=== PATIENT | male | born 1945 | race Caucasian/White ===

== ENCOUNTER 2017-06-03 09:39 | Inpatient (IN) | payer OTHER ==
[2017-05-03 11:09] VITALS: BMI 35.0
--- NOTE | 2017-05-03 11:41 | PAT Medication Instructions ---
Service Date May 03, 2017. Current Home Medication List Acetaminophen (Tylenol), 1,000 MG PO PRN Aspirin (Aspirin Ec), 81 MG PO QAM Clobetasol Propionate (Clobetasol Propionate), 1 APPLN TOP PRN Lovastatin (Mevacor), 20 MG PO QAM [Axid], 1 TAB PO QAM [Verapamil Sl], 180 MG PO QAM Medication Instructions For Your Scheduled Surgery - Hold the following medications 24 hours prior to surgery: Clobetasol Propionate (Clobetasol Propionate), 1 APPLN TOP PRN - Take the following medications the morning of surgery with a sip of water: Acetaminophen (Tylenol), 1,000 MG PO PRN (OKAY TO TAKE UP TO 4 HOURS PRIOR TO SURGERY IF NEEDED) Aspirin (Aspirin Ec), 81 MG PO QAM Lovastatin (Mevacor), 20 MG PO QAM [Axid], 1 TAB PO QAM [Verapamil Sl], 180 MG PO QAM - Take the following medications as scheduled the night before surgery: Acetaminophen (Tylenol), 1,000 MG PO PRN (IF NEEDED) If you have any questions please call us at [phone] or [phone] or [phone]
--- NOTE | 2017-05-03 12:25 | DIAGNOSTIC IMAGING REPORT ---
CHEST 2 VIEWS ROUTINE CLINICAL HISTORY: PAT preoperative evaluation COMPARISON STUDY: No previous studies for comparison. FINDINGS: The bones soft tissues and hemidiaphragms are normal. The cardiomediastinal silhouette is normal. The lungs are clear. The pulmonary vasculature is normal. IMPRESSION: Negative chest. The above report was generated using voice recognition software. It may contain grammatical, syntax or spelling errors. Electronically signed by: Almas Parada M.D. 05/03/2017 12:23 PM Dictated Date/Time: 05/03/2017 12:23 PM
[2017-05-03 13:48] LABS: ALBUMIN 3.7 gm/dl (3.4-5.0); CALCIUM 8.4 mg/dl (8.5-10.1); CREATININE 0.73 mg/dl (0.60-1.40); POTASSIUM 4.1 mmol/L (3.5-5.1)
[2017-05-03 13:49] LABS: PTT PATIENT 25.8 SECONDS (21.0-31.0)
[2017-05-03 14:13] LABS: HEMOGLOBIN A1C 5.6 % (4.5-5.6)
[2017-05-03 15:45] LABS: BASO % 0.4 %; BASO ABS # 0.03 K/uL (0-0.2); EOS % 4.1 %; EOS ABS # 0.29 K/uL (0-0.5); HEMATOCRIT 43.3 % (42-52); HEMOGLOBIN 15.1 g/dL (14.0-18.0); IG# 0.02 K/uL (0.00-0.02); LYMPH % 22.6 %; LYMPH ABS # 1.58 K/uL (1.2-3.4); MEAN CELL VOLUME 89.6 fL (80-100); MEAN CORPUSCULAR HEMOGLOBIN 31.3 pg (25-34); MEAN CORPUSCULAR HGB CONC 34.9 g/dl (32-36); MEAN PLATELET VOLUME 10.4 fL (7.4-10.4); MONO % 10.9 %; MONO ABS # 0.76 K/uL (0.11-0.59); NEUT % 61.7 %; NEUT ABS # 4.32 K/uL (1.4-6.5); PLATELET COUNT 239 K/uL (130-400); RED CELL DISTRIBUTION WIDTH CV 12.3 % (11.5-14.5); RED CELL DISTRIBUTION WIDTH SD 39.4 fL (36.4-46.3)
--- NOTE | 2017-06-01 11:16 | HISTORY & PHYSICAL EXAMINATION ---
DATE OF ADMISSION: 06/03/2017 CHIEF COMPLAINT: Right knee pain and left shoulder pain. HISTORY OF PRESENT ILLNESS: The patient is a 72-year-old gentleman, approximately 5 years status post right total knee arthroplasty. In the past few months, he has been having some increasing pain. X-rays were questionable for possible lucency around the tibial component. The patient has also had subsequent knee arthroscopy with debridement of hypertrophic scarring. He continues to have ongoing pain. He had a bone scan which is suggestive of likely loosening of the tibial component, possible femoral component. He has had negative blood work for infection. He is now scheduled for right total knee revision arthroplasty. He has also had a history of left shoulder pain, treated with intermittent injections. We will give him a left shoulder injection at the time of his knee surgery. PAST MEDICAL HISTORY: Iron deficiency anemia, hyperlipidemia, hypertension, GERD, prostate cancer, coronary artery disease, sleep apnea, CPAP use. PAST SURGICAL HISTORY: Right knee as above, right knee arthroscopy, left knee replacement, prostate surgery, foot surgery. MEDICATIONS: Aspirin 81 mg daily, Zantac 150 mg 2 times daily, verapamil SR 180 mg daily, lovastatin 20 mg daily, Aristocort applied topically to affected area twice daily as needed. ALLERGIES: No known drug allergies. SOCIAL HISTORY AND REVIEW OF SYSTEMS: Noncontributory. PHYSICAL EXAMINATION: GENERAL: Well-nourished, well-developed male who appears his stated age. HEENT: Normocephalic, atraumatic. Extraocular movements intact. Oropharynx pink and moist. NECK: Supple without adenopathy. LUNGS: Clear to auscultation bilaterally. HEART: Regular rate and rhythm. ABDOMEN: Soft, nontender, nondistended. EXTREMITIES: Upper extremities are within normal limits. The right knee has a well-healed midline incision from his previous arthroplasty. His range of motion is from 0-120 degrees. X-RAYS: X-rays were reviewed. He has a Anni type knee in place. There appears to be obvious lucency from medial to lateral beneath the tibial component. This is also visible on the lateral x-ray. The femoral component does not show any obvious lucency. The bone scan was reviewed and also shows increased uptake, particularly around the tibial component but also mildly about the femoral component. His CRP and sed rate were within normal limits. ASSESSMENT: Aseptic loosening, right knee. PLAN: Risks versus benefits were discussed, consent was obtained. We will proceed with right knee excisional arthroplasty and revision total knee arthroplasty as indicated. Also give the patient left shoulder subacromial injection at the time of his knee surgery.
[2017-06-03] VITALS (7 sets, daily range): BP systolic 96–149; BP diastolic 59–92; PULSE 49–75; TEMP 36.4–36.7; O2SAT 92–97; Ht 172.7 cm; Wt 104.6 kg
[~2017-06-03] VITALS: Ht 172.7 cm; Wt 104.6 kg
[2017-06-03] MEDS: TRANEXAMIC ACID INJ 1,000 MG in SYRINGE 0 ML IV SCH ×2 (06:30→11:39)
--- NOTE | 2017-06-03 07:16 | History & Physical Bridge Note ---
H&P Re-Evaluation Bridge Note: I have examined the patient, reviewed the History & Physical and in the interval since the performance of the History & Physical I have noted the following changes of clinical significance: No changes noted
[~2017-06-03 09:39] MED LIST: ACET-1256 PO; ACETAMINOPHEN 500 MG TAB PO SCH; ASPI81TA28 PO; ATROPINE SULFATE 0.1 MG/ML 5ML SYR IV PRN; AXID PO; BUPIVACAINE 0.25% 30 ML VIAL ONE; BUPIVACAINE 0.5 % 5 MG/1 ML PF 10ML VIAL ONE; CEFAZOLIN 2000MG IV PUSH 15 ML IV SCH; CLBPO15 TOP; CeleBREX 200 MG CAP PO SCH; DEXAMETHASONE 4 MG TAB PO SCH; EpHEDrine SULFATE INJ 50 MG/ML AMP IV PRN; FAMOTIDINE 20 MG TAB PO SCH; FENTANYL CITRATE INJ 50 MCG/1 ML 2 ML VIAL IV PRN; GABAPENTIN 300 MG CAP PO SCH; LACTATED RINGER'S 1000ML 1,000 ML IV SCH; LACTATED RINGER'S 1000ML 500 ML IV SCH; LACTATED RINGER'S 1000ML IV SCH; LOVA20TA4 PO; METOCLOPRAMIDE HCL 10 MG TAB PO SCH; ONDANSETRON INJ 2 MG/ML 2 ML VIAL IV PRN; OXYCODONE HCL 10 MG TABCR (OXYCONTIN) PO SCH; ROPIVACAINE 5MG/ML 30 ML 150 MG, BUPIVACAINE 0.5% MPF INJ 30 ML, EpINEphrine HCL INJ 0.... INFIL SCH; VERAPAMIL PO
[2017-06-03] MEDS ORDERED: EpHEDrine SULFATE 50MG/5ML SYR ONE (09:48)
[2017-06-03] MEDS ORDERED: FENTANYL CITRATE INJ 50 MCG/1 ML 2 ML VIAL ONE (09:48)
[2017-06-03] MEDS ORDERED: PROPOFOL IV EMULSION 10 MG/ML 20 ML VIAL IV ONE ×4 (09:48→14:07)
[2017-06-03] MEDS ORDERED: MIDAZOLAM HCL 1 MG/ML 2ML VIAL ONE (09:48)
[2017-06-03] MEDS ORDERED: PHENYLEPHRINE 100MCG/ML 5ML SYR ONE (09:48)
[2017-06-03] MEDS ORDERED: LIDOCAINE HCL 2% 2 ML VIAL (20MG/ML) ONE (09:48)
[2017-06-03] MEDS ORDERED: ORTHO JOINT ANESTHETIC ONE (11:16)
[2017-06-03] MEDS ORDERED: BACITRACIN 50000 UNIT VIAL ONE (11:16)
[2017-06-03] MEDS ORDERED: POVIDONE-IODINE OP SOLN 30 ML BTL ONE (11:16)
[2017-06-03] MEDS ORDERED: BUPIVACAINE 0.5 % 5 MG/1 ML MPF 30ML VIAL ONE (11:20)
[2017-06-03] MEDS ORDERED: METHYLPREDNISOLONE ACETATE 80 MG/ML VIAL ONE (11:20)
--- NOTE | 2017-06-03 14:30 | [facility] Post Operative Brief Note ---
Immediate Operative Summary Operative Date Jun 03, 2017. Pre-Operative Diagnosis Aseptic Loosening, right knee Post-Operative Diagnosis same as pre-operative Procedure(s) Performed Right Total Knee Revision; Left Shoulder Subacromial Injection Surgeon Dr. Ruslan Seay Unit Control Worker Surgeon(s) Delta Agrawal PA-C Estimated Blood Loss 30mL Findings Consistent with Post-Op Diagnosis no iacute inflammation x3 Specimens Microbiology: 1. Right Knee Joint fluid for gram stain, culture and sensitivity, anaerobic and aerobic bacteria. Frozen Section: 1. Soft tissue, right bone interface femur 2. tibial cement interface, right. 3. tibial post interface, right. Fresh Specimen: A. Right Knee explanted hardware with no evidence of failure per Surgeon. Not to be sent to laboratory. May be returned to patient per Surgeon. Anesthesia Type MAC Spinal Regional Disposition Accompanied Pt To Recover: no Disposition: Recovery Room / PACU
[2017-06-03] MEDS ORDERED: ONDANSETRON INJ 2 MG/ML 2 ML VIAL IV PRN (15:15)
[2017-06-03] MEDS ORDERED: ALUMINUM/MAGNESIUM/SIMETH (MAALOX MAX) 30 ML UDC PO PRN (15:15)
[2017-06-03] MEDS ORDERED: MoRPHine SULFATE 2 MG/ML CARP IV PRN (15:15)
[2017-06-03] MEDS ORDERED: MAGNESIUM HYDROXIDE SUSP 30 ML UDC PO PRN (15:15)
[2017-06-03] MEDS ORDERED: OXYCODONE HCL IR 5 MG TAB (IMMEDIATE RELEASE) PO PRN (15:15)
[2017-06-03] MEDS ORDERED: METOCLOPRAMIDE HCL INJ 5 MG/ML 2 ML VIAL IV PRN (15:15)
[2017-06-03] MEDS ORDERED: ZOLPIDEM TARTRATE 5 MG TAB PO PRN (15:15)
[2017-06-03] MEDS ORDERED: TAMSULOSIN HCL 0.4 MG CAP PO PRN (15:15)
--- NOTE | 2017-06-03 15:34 | DIAGNOSTIC IMAGING REPORT ---
R KNEE 1 OR 2 VIEWS ROUTINE HISTORY: 72 years-old Male AP/LATERAL IN PACU RIGHT KNEE right knee osteoarthritis. Status post right knee total joint arthroplasty COMPARISON: Right knee radiographs 12/31/2011 TECHNIQUE: 2 views of the right knee FINDINGS: Status post revision of right knee total joint arthroplasty with elongated femoral and tibial stems. Prior patellar resurfacing. Surgical drain is in place along with expected postsurgical soft tissue swelling and deep tissue air. Alignment is satisfactory. No retained foreign bodies identified. IMPRESSION: Right knee total joint arthroplasty in satisfactory alignment. The above report was generated using voice recognition software. It may contain grammatical, syntax or spelling errors. Electronically signed by: Arden Hawkins M.D. 06/03/2017 3:32 PM Dictated Date/Time: 06/03/2017 3:31 PM
--- NOTE | 2017-06-03 15:53 | Anesthesiology Progress Note ---
Anesthesia Post Op Note Date & Time Jun 03, 2017 at 15:53 Vital Signs Pain Intensity: 0 Vital Signs Past 12 Hours Date Time Temp Pulse Resp B/P (MAP) Pulse Ox O2 Delivery O2 Flow Rate FiO2 06/03/17 15:46 128/77 06/03/17 15:42 59 14 06/03/17 15:42 59 14 95 06/03/17 15:41 36.7 06/03/17 15:40 121/69 06/03/17 15:37 58 16 96 06/03/17 15:37 58 16 06/03/17 15:36 57 16 06/03/17 15:36 62 16 97 06/03/17 15:35 111/64 06/03/17 15:31 63 15 06/03/17 15:31 63 15 94 06/03/17 15:30 110/75 06/03/17 15:26 61 14 96 06/03/17 15:26 61 14 06/03/17 15:25 62 16 06/03/17 15:25 64 16 125/68 98 06/03/17 15:20 67 24 126/67 97 06/03/17 15:20 64 24 06/03/17 15:16 119/73 06/03/17 15:15 65 17 06/03/17 15:15 66 17 95 06/03/17 15:11 123/66 06/03/17 15:10 36.4 71 16 124/67 96 Mask 10 06/03/17 15:10 63 18 06/03/17 15:10 64 18 97 06/03/17 10:10 36.7 75 18 149/92 96 Room Air Notes Mental Status: alert / awake / arousable, participated in evaluation Pt Amnestic to Procedure: Yes Nausea / Vomiting: adequately controlled Pain: adequately controlled Airway Patency, RR, SpO2: stable & adequate BP & HR: stable & adequate Hydration State: stable & adequate Neuraxial Anesthesia: was administered, sensory block is resolving Anesthetic Complications: no major complications apparent
--- NOTE | 2017-06-03 16:02 | OPERATIVE REPORT ---
DATE OF OPERATION: 06/03/2017 POSTOPERATIVE DIAGNOSIS: Aseptic loosening, right total knee. PROCEDURE: Right total knee revision. SURGEON: Dr. Seay. VELVET STEAMER: Delta Agrawal PA-C. Mr. Agrawal was essential through all components of the case including positioning, prepping, draping, surgical garment fitter, wound closure and left shoulder injection. ANESTHESIA: Spinal. COMPLICATIONS: None. OPERATION AND FINDINGS: Following induction of adequate spinal anesthesia with IV sedation, the patient's left shoulder was prepped with alcohol and a subacromial injection was placed using 2 mL of Marcaine. Following this, the right knee was prepped and draped in usual sterile manner. The limb was exsanguinated with an Esmarch bandage, tourniquet inflated to 325 mmHg. The previously made incision was reopened and extended both proximally and distally. Median parapatellar incision was carried out and a complete synovectomy was carried out open. The scar from the backside of the patella was removed, the patella appeared to be intact and decision was made to retain the patella. A lateral snip was required for adequate exposure and the tibial poly was removed. Gross motion of the tibial component could be appreciated. Next, attention was turned to the femur which did not appear to be loose and this was undermined using a flexible osteotome and a mallet and the femoral component was disimpacted with actually no femoral loss. A small area of soft tissue at the bone cement interface behind the femoral flange was placed in a cup and sent to the lab for cell count. Next, attention was turned to the tibia which was easily disimpacted using a punch and a mallet. Plier was used to remove it. Soft tissue from the bone cement interface in the canal was prepared and separately soft tissue from the bone cement interface of the tibial plateau was prepared, so 3 specimens total were sent to lab for cell count. Toward the end of the case, these all came back negative for signs of acute inflammation with less than 5 white cells per high power field. Next, excess cement removal commenced. The canal was opened using a drill through the cement plug and various chisels utilized to break up the cement plug and all cement in the canal was removed. Sterile reamers were used to open the canal up to a 14 mm diameter and a proximal tibial cutting guide was placed and the proximal tibia cut was made. This cleaned up the proximal tibia nicely. All bone fragments were removed. Scarring posteriorly was debrided using electrocautery and a pickup. An offset tibia was noted to be needed. A size 4 tibial component was chosen the size to be used. The proximal tibia was prepared using the appropriate boss drilled as well as the tibial punch and a mallet. Next, attention was turned once again the femur. First, a 5 femoral trial was placed, which was found will be overstuffed and therefore, a trial was placed. Estimating augments was done and 5 mm augments were suspected posteriorly. A 15 mm augment medially and a 10 mm augment laterally distally. A trial reduction was carried out using the tibial poly and a size 16 tibia component was chosen the size to be used. Various changes in the joint line were trialed until this final combination was chosen. The augment cuts were made in the distal femur using the appropriate block and the notch was prepared as well. The femoral trial was assembled on the back table and reduction was carried out once again confirming augment sizes and poly thickness. A posterior stabilized poly was chosen as the post-total stability due to the patient's intact collateral ligaments. The trials were removed, the knee was thoroughly irrigated with pulsatile irrigation and the final components were assembled on the back table. Three plaques of cement with gentamicin were mixed and first the femoral component was cemented in position. All excess cement was removed. A blunt and sharp Hohmann was used to expose the proximal tibia and the tibial component was impacted into position and a trial reduction was carried out with the final 16 poly. All excess cement had been removed, the knee was held in extension while cement hardened and a Hemovac drain was placed. Final Betadine soak was utilized as well as a final irrigation and the lateral snip as well as extensor mechanism was closed using #1 FiberWire suture. Subcutaneous tissues were closed using 2-0 Dexon, and skin was closed with a ZipLine. Sterile dressing of Adaptic, 4 x 4's, sterile Webril and a double length Raoul was applied. The patient tolerated the procedure well. I attest to the content of the Intraoperative Record and any orders documented therein. Any exception s are noted below.
[2017-06-03] MEDS ORDERED: D5W AND 1/2NSS + 20MEQ KCL 1,000 ML IV SCH (16:30)
--- NOTE | 2017-06-03 17:37 | Medical Consult ---
History General Date of Service: Jun 03, 2017. Stated Complaint: Right Knee Osteoarthritis HPI The patient is a 72 year old male who presents to [facility] with complaints of Right Knee Osteoarthritis. The patient's primary care provider is Jaime Stevens MD. Pt's past medical hx includes-non occlusive CAD , HTN, GERD, hx of prostate CA , sleep apnea , dyslipidemia Pt had rt knee surgery done in 12/2011 , developed worsening of pain in past few years , evaluated by orthopedics , underwent revision surgery of rt knee today recovering well post op denies of any SOB ,chest pain or cough , no fever or chills mentions post op knee pain well controlled with current pain med regimen Historian: patient Onset: other (past few years ) Severity: moderate Complaint Status: improved Quality of Pain: aching Modifying Factors: pain medication Review of Systems Constitutional: denies: no symptoms, as stated in HPI, chills, diaphoresis, fever, malaise, weakness, weight gain, weight loss, other Eyes: denies: no symptoms, as stated in HPI, eye pain, tearing, itching, redness, discharge, double vision, visual changes, blurred vision, photophobia, other ENT: denies: no symptoms, as stated in HPI, ear pain, ear discharge, loss of hearing, tinnitus, nasal pain, nasal congestion, rhinorrhea, epistaxis, sore throat, stridor, throat swelling, mouth pain, mouth swelling, dental pain, gum swelling, other Cardiovascular: denies: no symptoms, as stated in HPI, chest pain, chest pressure, chest tightness, diaphoresis, edema, intermittent claudication, orthopnea, palpitations, syncope, other Respiratory: denies: no symptoms, as stated in HPI, cough, orthopnea, shortness of breath, stridor, wheezing, sputum production, cyanosis, QUESADA, PND, hemoptysis, other Gastrointestinal: denies: no symptoms, as stated in HPI, abdominal pain, constipation, diarrhea, nausea, vomiting, hematemesis, hematochezia, hemorrhoids , anorexia, appetite changes, stool changes, flatulence, belching, food intolerance, jaundice, other Musculoskeletal: reports: other (s/p rt knee revision surgery ) Neurologic: denies: no symptoms, as stated in HPI, headache, dizziness, general weakness, focal weakness, numbness, tingling, paresthesia, pre-existing deficit, tremors, tics, vertigo, seizure, lethargy, memory loss, other Psychiatric: denies: no symptoms, as stated in HPI, anxiety, depression, suicidal ideation, homicidal ideation, visual hallucinations, auditory hallucinations, mood changes, alcohol abuse, drug abuse, other Social History Hx Tobacco Use In Past Year?: No Smoking Status: Never Smoker Immunizations History of Influenza Vaccine: Yes Influenza Vaccine Date: Jan 29, 2011 History of Tetanus Vaccine?: No History of Pneumococcal: No History of Hepatitis B Vaccine: No Allergies Coded Allergies: Hydromorphone (Verified Allergy, Severe, DELIRIUM, 06/03/17) Current Medications Reported Home Medications Medications Dose Route/Sig Max Daily Dose Days Date Category Tylenol (Acetaminophen) 500 Mg Tab 1,000 Mg PO PRN 05/03/17 Reported Clobetasol Propionate 45 Appln/15 Gm Oint 1 Appln TOP PRN 30 05/03/17 Reported [Axid] 1 Tab PO QAM 05/03/17 Reported [Verapamil Sl] 180 Mg PO QAM 05/03/17 Reported Aspirin Ec (Aspirin) 81 Mg Tab 81 Mg PO QAM 05/03/17 Reported Mevacor (Lovastatin) 20 Mg Tab 20 Mg PO QAM 04/13/11 Reported Physical Physical Exam Vital Signs: Date Time Temp Pulse Resp B/P (MAP) Pulse Ox O2 Delivery O2 Flow Rate FiO2 06/03/17 17:00 36.4 57 16 132/78 (96) 95 Nasal Cannula 2.0 06/03/17 16:30 36.6 49 16 96/59 (71) 95 Nasal Cannula 2.0 06/03/17 16:00 36.4 61 16 113/68 (83) 92 Nasal Cannula 2.0 06/03/17 16:00 92 Nasal Cannula 2.0 06/03/17 16:00 92 Nasal Cannula 2.0 06/03/17 15:52 53 21 93 06/03/17 15:52 53 21 06/03/17 15:51 113/68 06/03/17 15:47 61 16 06/03/17 15:47 61 16 92 06/03/17 15:46 128/77 06/03/17 15:42 59 14 06/03/17 15:42 59 14 95 06/03/17 15:41 36.7 06/03/17 15:40 121/69 06/03/17 15:37 58 16 96 06/03/17 15:37 58 16 06/03/17 15:36 57 16 06/03/17 15:36 62 16 97 06/03/17 15:35 111/64 06/03/17 15:31 63 15 06/03/17 15:31 63 15 94 06/03/17 15:30 110/75 06/03/17 15:26 61 14 96 06/03/17 15:26 61 14 06/03/17 15:25 62 16 06/03/17 15:25 64 16 125/68 98 06/03/17 15:20 67 24 126/67 97 06/03/17 15:20 64 24 06/03/17 15:16 119/73 06/03/17 15:15 65 17 06/03/17 15:15 66 17 95 06/03/17 15:11 123/66 06/03/17 15:10 36.4 71 16 124/67 96 Mask 10 06/03/17 15:10 63 18 06/03/17 15:10 64 18 97 06/03/17 10:10 36.7 75 18 149/92 96 Room Air General Appearance: NO APPARENT DISTRESS Head: NORMOCEPHALIC, ATRAUMATIC Eyes: PERRLA Neck: NORMAL RANGE OF MOTION, NO THYROMEGALY Cardiovasular: REGULAR RATE/RHYTHM, NORMAL S1S2, NO JVD, NORMAL PERIPHERAL PULSES Abdomen: NON TENDER, NORMAL BOWEL SOUNDS Upper Extremities: NO EDEMA, NO DEFORMITY, NORMAL ROM Lower Extremities: other (s/p rt knee surgery ) Neuro: ALERT, ORIENTED x 3, NORMAL MOTOR EXAM Psychiatric: NORMAL AFFECT Diagnostics Labs Microbiology Results 06/03/17 Gram Stain - Final, Resulted 06/03/17 Bacterial Culture, Resulted Pending Diagnostic Radiology R KNEE 1 OR 2 VIEWS ROUTINE HISTORY: 72 years-old Male AP/LATERAL IN PACU RIGHT KNEE right knee osteoarthritis. Status post right knee total joint arthroplasty COMPARISON: Right knee radiographs 12/31/2011 TECHNIQUE: 2 views of the right knee FINDINGS: Status post revision of right knee total joint arthroplasty with elongated femoral and tibial stems. Prior patellar resurfacing. Surgical drain is in place along with expected postsurgical soft tissue swelling and deep tissue air. Alignment is satisfactory. No retained foreign bodies identified. IMPRESSION: Right knee total joint arthroplasty in satisfactory alignment. Radiology Interpretation: CXR NORMAL Impression Assessment and Plan S/P RT KNEE REVISION SURGERY : recovering well post op cont pain control ( pt report adverse reaction /delirium with Dilaudid -was given in prior surgery /added to Allergy /adv reaction list ) does not have any untoward effect with current regimen of Celebrex /Toradol ; ordered for PRN Roxicodone and Morphine -has not received any dose yet pt prefers not to have any narcotics -will hold Roxicodone for now , IV morphine can be D/emiliano on Post op #1 if pain remains good control cont further management as per Ortho HTN : BP stable cont Verapamil HYPERLIPIDEMIA: on Lovastatin HX OF NON OCCLUSIVE CAD Stress ECHO on 02/21/2013 : negative for stress induced ischemia , evidence of aortic sclerosis without aortic stenosis , mild aortic valve regurgitation present no angina symptom cont Aspirin , Verapamil , statin FULL CODE DVT PROPHYLAXIS : on Aspirin 81 mg BID per Ortho DISPOSITION : per Primary Ortho team thank you for allowing us to participate in care of the patient , will continue to follow the pt during his hospital course Dr Mariano will follow this patient form tomorrow 06/04/17 Admit To Med/Surg Code Status Level 1 - Full Code DVT Prophylaxis other (Aspirin )
[2017-06-03] MEDS: FERROUS GLUCONATE 324 MG TAB PO SCH (17:54)
[2017-06-03] MEDS: KETOROLAC TROMETHAMINE 15 MG/ML VIAL IV. SCH ×2 (18:14→23:18)
[2017-06-03] MEDS: ACETAMINOPHEN 500 MG TAB PO SCH (18:14)
[2017-06-03] MEDS: CEFAZOLIN IV 2,000 MG in SYRINGE 0 ML IV SCH (19:54)
[2017-06-03] MEDS: ASPIRIN 81 MG ECTAB PO SCH (20:23)
[2017-06-03] MEDS: DOCUSATE SODIUM 100 MG CAP PO SCH (20:23)
[2017-06-04] MEDS: ACETAMINOPHEN 500 MG TAB PO SCH ×3 (02:04→17:39)
[2017-06-04 03:38] VITALS: BP 127/78; PULSE 66; TEMP 36.6; O2SAT 96
[2017-06-04] MEDS: CEFAZOLIN IV 2,000 MG in SYRINGE 0 ML IV SCH (03:58)
[2017-06-04] MEDS: KETOROLAC TROMETHAMINE 15 MG/ML VIAL IV. SCH ×2 (05:43→11:38)
[2017-06-04 06:52] LABS: HEMATOCRIT 39.5 % (42-52); HEMOGLOBIN 13.9 g/dL (14.0-18.0); MEAN CELL VOLUME 88.2 fL (80-100); MEAN CORPUSCULAR HGB CONC 35.2 g/dl (32-36); MEAN PLATELET VOLUME 10.1 fL (7.4-10.4); PLATELET COUNT 224 K/uL (130-400); RED CELL DISTRIBUTION WIDTH CV 12.6 % (11.5-14.5); RED CELL DISTRIBUTION WIDTH SD 40.6 fL (36.4-46.3); WHITE BLOOD COUNT 16.05 K/uL (4.8-10.8)
[2017-06-04 06:59] LABS: CALCIUM 8.6 mg/dl (8.5-10.1); CREATININE 1.13 mg/dl (0.60-1.40); POTASSIUM 4.3 mmol/L (3.5-5.1)
[2017-06-04 07:13] VITALS: BP 130/80; PULSE 61; TEMP 36.6; O2SAT 94
[2017-06-04] MEDS ORDERED: DEXAMETHASONE INJ 10 MG in SYRINGE 0 ML IV SCH (07:30)
--- NOTE | 2017-06-04 08:10 | Orthopedic Progress Note ---
Orthopedic Progress Note Date of Service Jun 04, 2017. Subjective Post OP Day: 1 Reports: feeling well, pain controlled w PO medications, Denies: complaints, chest pain, SOB, nausea / vomiting, light headedness, calf pain Objective calves soft nontender, N/V intact, capillary refill less than 2 sec., dressing C /D/I, A&O x3, toes mobile, hemovac drainage (150cc/150cc) Date Time Temp Pulse Resp B/P (MAP) Pulse Ox O2 Delivery O2 Flow Rate FiO2 06/04/17 07:13 36.6 61 16 130/80 (97) 94 Room Air 06/04/17 03:38 36.6 66 17 127/78 (94) 96 CPAP 06/03/17 23:27 36.6 74 16 144/81 (102) 97 Room Air 06/03/17 23:15 Room Air CPAP 06/03/17 19:00 36.6 73 20 136/86 (103) 92 Room Air 06/03/17 18:00 36.7 72 16 147/82 (103) 95 Room Air 06/03/17 17:00 36.4 57 16 132/78 (96) 95 Nasal Cannula 2.0 06/03/17 16:30 36.6 49 16 96/59 (71) 95 Nasal Cannula 2.0 06/03/17 16:00 36.4 61 16 113/68 (83) 92 Nasal Cannula 2.0 06/03/17 16:00 92 Nasal Cannula 2.0 06/03/17 16:00 92 Nasal Cannula 2.0 06/03/17 15:52 53 21 93 06/03/17 15:52 53 21 06/03/17 15:51 113/68 06/03/17 15:47 61 16 06/03/17 15:47 61 16 92 06/03/17 15:46 128/77 06/03/17 15:42 59 14 06/03/17 15:42 59 14 95 06/03/17 15:41 36.7 06/03/17 15:40 121/69 06/03/17 15:37 58 16 96 06/03/17 15:37 58 16 06/03/17 15:36 57 16 06/03/17 15:36 62 16 97 06/03/17 15:35 111/64 06/03/17 15:31 63 15 06/03/17 15:31 63 15 94 06/03/17 15:30 110/75 06/03/17 15:26 61 14 96 06/03/17 15:26 61 14 06/03/17 15:25 62 16 06/03/17 15:25 64 16 125/68 98 06/03/17 15:20 67 24 126/67 97 06/03/17 15:20 64 24 06/03/17 15:16 119/73 06/03/17 15:15 65 17 06/03/17 15:15 66 17 95 06/03/17 15:11 123/66 06/03/17 15:10 36.4 71 16 124/67 96 Mask 10 06/03/17 15:10 63 18 06/03/17 15:10 64 18 97 06/03/17 10:10 36.7 75 18 149/92 96 Room Air Laboratory Results 24 Hours: Test 06/04/17 06:02 Hematocrit 39.5 % Hemoglobin 13.9 g/dL Assessment & Plan Assessment: POD#1 S/P Right TKA Plan: Medical Management DVT - ASA PT/OT Discharge - home with home health Inhouse Planning Pain Management: Celebrex, Morphine, Oxy IR DVT Prophylaxis: TEDs, SCDs, ASA Discharge Planning Discharge Planning: home with home health
[2017-06-04] MEDS: FERROUS GLUCONATE 324 MG TAB PO SCH ×3 (08:29→17:29)
[2017-06-04] MEDS: ASPIRIN 81 MG ECTAB PO SCH ×2 (08:29→21:35)
[2017-06-04] MEDS: DOCUSATE SODIUM 100 MG CAP PO SCH ×2 (08:29→21:34)
[2017-06-04] MEDS ORDERED: PNEUMOCOCCAL POLYSACCHARIDES 25 MCG/0.5 ML VIAL/SYR IM. ONE (08:30)
[2017-06-04] MEDS: PANTOprazole SOD 40 MG TAB PO SCH (08:30)
[2017-06-04] MEDS: VERAPAMIL HCL 180 MG TABCR PO SCH (08:30)
[2017-06-04] MEDS: LOVASTATIN 20 MG TAB PO SCH (08:30)
[2017-06-04] MEDS: MULTIVITAMIN TAB PO SCH (08:30)
[2017-06-04] MEDS ORDERED: PNEUMOCOCCAL ADMINISTRATION CHARGE ONE (08:30)
--- NOTE | 2017-06-04 10:56 | Anesthesiology Progress Note ---
Anesthesia Post Op Note Date & Time Jun 04, 2017 at 10:55 Vital Signs Pain Intensity: 3.0 Vital Signs Past 12 Hours Date Time Temp Pulse Resp B/P (MAP) Pulse Ox O2 Delivery O2 Flow Rate FiO2 06/04/17 07:45 Room Air 06/04/17 07:13 36.6 61 16 130/80 (97) 94 Room Air 06/04/17 03:38 36.6 66 17 127/78 (94) 96 CPAP 06/03/17 23:27 36.6 74 16 144/81 (102) 97 Room Air 06/03/17 23:15 Room Air CPAP Notes Mental Status: alert / awake / arousable, participated in evaluation Pt Amnestic to Procedure: Yes Nausea / Vomiting: adequately controlled Pain: adequately controlled Airway Patency, RR, SpO2: stable & adequate BP & HR: stable & adequate Hydration State: stable & adequate Anesthetic Complications: no major complications apparent
[2017-06-04 12:09] VITALS: BP 144/77; PULSE 86; TEMP 36.8; O2SAT 94
--- NOTE | 2017-06-04 13:35 | Hospitalist Progress Note ---
Hospitalist Progress Note Date of Service Jun 04, 2017. (Sarah Rutledge CRNP) Subjective POD #1 Right Total Knee Revision Patient was seen and examined. He is sitting up in the chair. Reports his pain is well controlled with pain medicines. No chest pain or shortness of breath. No BM however is passing flatus. Denies abdominal pain, nausea, or vomiting. No lightheadedness or dizziness. (Sarah Rutledge CRNP) Objective Vital Signs Last Vital Signs Documentation Date Time Temp Pulse Resp B/P (MAP) Pulse Ox O2 Delivery O2 Flow Rate FiO2 2 12:09 36.8 86 16 144/77 (99) 94 Room Air 218 17:00 2.0 (Sarah Rutledge CRNP) Physical Exam General Appearance: WD/WN, no apparent distress Respiratory/Chest: lungs clear, normal breath sounds, no respiratory distress Cardiovascular: regular rate, rhythm, no edema, + systolic murmur Abdomen: normal bowel sounds, non tender, soft, + distended Extremities: + pertinent finding (s/p right knee surgery, dressing dry and intact, drain in place draining bloody drainage, CSM checks intact to RLE) Neurologic/Psychiatric: alert, oriented x 3 (Sarah Rutledge CRNP) Laboratory Results Item Value Date Time White Blood Count 16.05 K/uL H 2/18 0602 Hemoglobin 13.9 g/dL L 218 0602 Hematocrit 39.5 % L 218 0602 Platelet Count 224 K/uL 2 0602 Sodium Level 136 mmol/L 218 0602 Potassium Level 4.3 mmol/L 2 0602 Blood Urea Nitrogen 17 mg/dl 2 0602 Creatinine 1.13 mg/dl 2 0602 (Sarah Rutledge CRNP) Assessment and Plan S/P RIGHT TOTAL KNEE REVISION - POD#1 - activity and wound care orders as per ortho - pain control with bowel regimen - PT/OT - pre op hgb 15.1 -> 13.9; no role for transfusion at this time HTN - BP controlled, continue verapamil NON OBSTRUCTIVE CAD - stable, no reports of chest pain - continue ASA and statin JADYN - CPAP as per home settings DVT PROPHYLAXIS - ASA 81mg BID per ortho (Sarah Rutledge, PAYAL) S/p rt knee revision surgery POD #1 recovering well post op cont management as per Ortho medically stable Maria Isabel Jones MD (Maria Isabel Jones M.D.)
[2017-06-04] MEDS ORDERED: NURSING VERBAL MED ORDER ONE (14:45)
[2017-06-04 15:20] VITALS: BP 140/74; PULSE 72; TEMP 36.7; O2SAT 95
[2017-06-04] MEDS: TRAMADOL HCL 50 MG TAB PO PRN ×3 (15:37→20:32)
[2017-06-04] MEDS: CeleBREX 200 MG CAP PO SCH (21:35)
[2017-06-04 23:48] VITALS: BP 132/82; PULSE 57; TEMP 36.5; O2SAT 95
[2017-06-05] MEDS: ACETAMINOPHEN 500 MG TAB PO SCH ×2 (02:09→10:04)
[2017-06-05 06:04] LABS: HEMATOCRIT 34.5 % (42-52); HEMOGLOBIN 11.9 g/dL (14.0-18.0); MEAN CELL VOLUME 89.1 fL (80-100); MEAN CORPUSCULAR HEMOGLOBIN 30.7 pg (25-34); MEAN CORPUSCULAR HGB CONC 34.5 g/dl (32-36); MEAN PLATELET VOLUME 10.4 fL (7.4-10.4); PLATELET COUNT 192 K/uL (130-400); RED CELL DISTRIBUTION WIDTH CV 13.1 % (11.5-14.5); RED CELL DISTRIBUTION WIDTH SD 42.5 fL (36.4-46.3); WHITE BLOOD COUNT 13.63 K/uL (4.8-10.8)
[2017-06-05 06:35] VITALS: BP 130/83; PULSE 58; TEMP 36.6; O2SAT 94
[2017-06-05 06:41] LABS: CALCIUM 8.4 mg/dl (8.5-10.1); CREATININE 0.88 mg/dl (0.60-1.40); POTASSIUM 4.8 mmol/L (3.5-5.1)
[2017-06-05] MEDS: FERROUS GLUCONATE 324 MG TAB PO SCH ×2 (07:36→13:10)
[2017-06-05] MEDS: ASPIRIN 81 MG ECTAB PO SCH (07:36)
[2017-06-05] MEDS: TRAMADOL HCL 50 MG TAB PO PRN ×2 (07:36→13:46)
[2017-06-05] MEDS: DOCUSATE SODIUM 100 MG CAP PO SCH (07:37)
[2017-06-05] MEDS: LOVASTATIN 20 MG TAB PO SCH (08:32)
[2017-06-05] MEDS: PANTOprazole SOD 40 MG TAB PO SCH (08:32)
[2017-06-05] MEDS: MULTIVITAMIN TAB PO SCH (08:32)
[2017-06-05] MEDS: VERAPAMIL HCL 180 MG TABCR PO SCH (08:33)
--- NOTE | 2017-06-05 08:39 | Orthopedic Progress Note ---
Orthopedic Progress Note Date of Service Jun 05, 2017. Subjective Post OP Day: 2 Reports: feeling well, pain controlled w PO medications, Denies: complaints, chest pain, SOB, nausea / vomiting, light headedness, calf pain Objective calves soft nontender, N/V intact, capillary refill less than 2 sec., dressing C /D/I, A&O x3, toes mobile Silverlon in tact. Date Time Temp Pulse Resp B/P (MAP) Pulse Ox O2 Delivery O2 Flow Rate FiO2 06/05/17 07:15 Room Air 06/05/17 06:35 36.6 58 16 130/83 (99) 94 Room Air 06/04/17 23:48 36.5 57 16 132/82 (99) 95 CPAP 06/04/17 19:30 Room Air 06/04/17 15:20 36.7 72 18 140/74 (96) 95 Room Air 06/04/17 12:09 36.8 86 16 144/77 (99) 94 Room Air Laboratory Results 24 Hours: Test 06/05/17 05:30 Hematocrit 34.5 % Hemoglobin 11.9 g/dL Assessment & Plan Assessment: POD#2 S/P Right TKA REVISION Plan: Medical Management DVT - ASA PT/OT Discharge - home with home health TODAY CXS/ GRAM STAIN NEG. I have seen and examined the patient, and agree with SHANEKA Weathers's assessment and plan. I am covering Orthopedic Surgery call for Dr. Seay, who is unavailable. Nick Moeller MD Inhouse Planning Pain Management: Celebrex, Morphine, Oxy IR DVT Prophylaxis: TEDs, SCDs, ASA Discharge Planning Discharge Planning: home with home health
[2017-06-05] MEDS ORDERED: ASPEC81 PO (08:42)
[2017-06-05] MEDS ORDERED: ACET-24 PO (08:42)
[2017-06-05] MEDS ORDERED: ULT50X PO (08:42)
[2017-06-05] MEDS ORDERED: CLB200 PO (08:42)
--- NOTE | 2017-06-05 08:44 | Discharge Instructions ---
Discharge Instructions Date of Service Jun 05, 2017. Admission Reason for Admission: Right Knee Osteoarthritis Discharge Discharge Diagnosis / Problem: RIGHT TKA REVISION Discharge Goals Goal(s): Improve function Activity Recommendations Activity Limitations: as noted below . Instructions / Follow-Up Instructions / Follow-Up ACTIVITY RECOMMENDATIONS: SELF CARE INSTRUCTIONS AFTER TOTAL KNEE REPLACEMENT A. You may need to continue a physical therapy program after discharge from the hospital. There are several options available to you. Your doctor will assist you in selecting the best one for you. 1. An out-patient facility 2 to 3 times a week for therapy or home therapy. 2. Continue working on all exercises taught to you in the hospital. Your goals should be to increase bending of your knee to 90 degrees and beyond and to fully straighten your knee. B. You may progress at your own pace from walking with a walker or crutches to a cane; then to no assistive devices. C. Make walking a part of your daily routine. Be up as much as comfortable with rest periods throughout the day. Rest with leg elevation is very important. Use the ice wrap frequently for the first 3-4 weeks. D. There are no restrictions on activities. You may ride in a car, shop, participate in poultry cutter and all social activities. E. Wear the long elastic stockings (TIFFANI hose) 20 hours a day for 2 weeks after surgery. They can be removed several times a day for laundering and for a bath. F. You may shower, no tub baths until cleared by your doctor. SPECIAL CARE INSTRUCTIONS: VERY IMPORTANT TO READ AND REVIEW A. There are a few signs you need to watch for after you are home. Call [facility] if you notice any of the followin. Increased severe knee pain. Some pain is expected especially when you exercise. 2. Increased swelling in your leg or knee; pain or swelling of the calf muscle in either lower leg. 3. Any fluid drainage from the incision. 4. Shortness of breath or chest pain. B. Please call [facility] at if you have any concerns or questions about your operation or recovery. The doctor or his nurse will return your call promptly. C. You must take antibiotics before dental work, bladder, bowel or other surgery. Your doctor will provide you with a permanent care to carry describing this precaution. IMPORTANT: * REMEMBER TO TAKE ASPIRIN, 81 MG, TWICE DAILY FOR 4 WEEKS UNLESS OTHERWISE DIRECTED. THIS IS YOUR BLOOD THINNER. * HIGH RISK PATIENTS MAY BE PRESCRIBED A STRONGER BLOOD THINNER. THIS WILL BE PROVIDED AT DISCHARGE. * CALL IF INCREASED PAIN, REDNESS, DRAINAGE OR FEVER GREATER THAT 101. * WEAR TIFFANI HOSE 20 HOURS PER DAY FOR 2 WEEKS. * YOU MAY HAVE A LARGE BAND-AID LIKE DRESSING (SILVERON). THIS WILL REMAIN ON YOUR INCISION FOR 7 DAYS, THEN CAN BE REMOVED. IF INCISION IS LEAKING THROUGH DRESSING, CALL THE OFFICE . FOLLOW UP VISIT: If appointment is not already scheduled: Please call [facility] to make a follow-up appointment for 2 weeks after your surgery at . Current Hospital Diet Patient's current hospital diet: Regular Diet Discharge Diet Recommended Diet: Regular Diet Procedures Procedures Performed: Right Total Knee Revision; Left Shoulder Subacromial Injection Pending Studies Studies pending at discharge: no Laboratory Results Hemoglobin A1c Test 05/03/17 11:53 Range/Units Estimated Average Glucose 114 mg/dl Hemoglobin A1c 5.6 4.5-5.6 % Medical Emergencies . Who to Call and When: Medical Emergencies: If at any time you feel your situation is an emergency, please call [phone] immediately. . Non-Emergent Contact Non-Emergency issues call your: Primary Care Provider . "Provider Documentation" section prepared by Almas Weathers. . VTE Core Measure Inpt VTE Proph given/why not?: Other Anticoagulation (ASA), T.E.D. Stockings, SCD's
[2017-06-05] MEDS: CeleBREX 200 MG CAP PO SCH (08:55)
[2017-06-05 09:09] VITALS: BP 130/83; PULSE 58; TEMP 36.6; O2SAT 94
== END 2017-06-05 14:30 | disposition home health service (06) | DRG 468 ==
LOC: C.ACU 09:39 → C.3E 11:01 → ENRESERV 15:36
PROC: 0SWT0JZ Revision of Synthetic Substitute in Right Knee Joint, Femoral Surface, Open Approach (ICD-10-PCS; principal; 2017-06-03 12:00)
PROC: 0SWV0JZ Revision of Synthetic Substitute in Right Knee Joint, Tibial Surface, Open Approach (ICD-10-PCS; principal; 2017-06-03 12:00)
PROC: 3E0U3BZ Introduction of Anesthetic Agent into Joints, Percutaneous Approach (ICD-10-PCS; principal; 2017-06-03 12:00)
DX: T84.032A Mechanical loosening of internal right knee prosthetic joint, initial encounter (principal); M25.512 Pain in left shoulder; D50.9 Iron deficiency anemia, unspecified; E78.5 Hyperlipidemia, unspecified; I10 Essential (primary) hypertension; K21.9 Gastro-esophageal reflux disease without esophagitis; G47.30 Sleep apnea, unspecified; I25.10 Atherosclerotic heart disease of native coronary artery without angina pectoris; Z79.82 Long term (current) use of aspirin; Z79.899 Other long term (current) drug therapy; Y83.1 Surgical operation with implant of artificial internal device as the cause of abnormal reaction of the patient, or of later complication, without mention of misadventure at the time of the procedure; Y79.2 Prosthetic and other implants, materials and accessory orthopedic devices associated with adverse incidents; Z96.653 Presence of artificial knee joint, bilateral; Z88.5 Allergy status to narcotic agent

== ENCOUNTER 2019-09-22 11:08 | Inpatient (IN) ==
--- NOTE | 2019-09-19 09:26 | History & Physical Report ---
Date of Service September 19, 2019 Assessment & Plan (1) Osteoarthritis of ankle, left: Schedule Left STAR Total Ankle Replacement, percutaneous tendo-achilles lengthening, resection Os Trigonum, Application PRP, possible Arthrex internal brace. All potential risks, benefits, complications, alternatives, and rehab have been discussed with the patient and he wishes to proceed. He will be scheduled for 09.22.2019 with plan for ASA 81 mg BID x 4 wks for DVT prophylaxis. 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 He self treated the ankle pain for many years using bracing and anti- inflammatories. He's had other conservative treatments done more recently, but he has failed all treatments. He is now being set up for a total ankle arthroplasty. Allergies Allergy/AdvReac Type Severity Reaction Status Date / Time hydromorphone Allergy Intermediate DELIRIUM Verified 09/14/19 07:57 Home Medications Home Medications Medication Instructions Recorded Confirmed Type aspirin [Aspirin Low Dose] 81 mg PO QAM 05/25/19 09/14/19 History lovastatin 20 mg PO QAM 05/25/19 09/14/19 History meloxicam 7.5 mg PO QAM 05/25/19 09/14/19 History multivitamin 1 tab PO DAILY 05/25/19 09/14/19 History verapamil 180 mg PO QAM 05/25/19 09/14/19 History famotidine 20 mg PO QAM 09/14/19 09/14/19 History Past Med/Surg History Social History Preferred Language: Dutch Communication Ability: Effective Trichologist Required: No Beliefs That Will Affect Care: None Current Living Situation: Spouse Feels Safe at Home: Yes Smoking Status: Never smoker Second Hand Exposure: Yes (hx as a child) ; Hx Alcohol Use: No Hx Substance Use: No Physical Exam Constitutional: well developed and well nourished; no acute distress ENMT: external ear and nose normal, oropharynx normal Neck: trachea midline, no thyromegaly Respiratory: normal respiratory effort, lungs clear to auscultation Cardiovascular: Rate/Rhythm: regular rate and regular rhythm Gastrointestinal (Abdomen): normal bowel sounds, soft, nontender, no hepatosplenomegaly Musculoskeletal: Ankle: + effusion (left ankle), + ankle ROM with crepitation (left ankle) and + joint line tenderness (ankle) (anterior left ankle); no skin erythema and no ecchymosis Skin: no rashes, warm and dry Neurologic: normal touch/pain/proprioception Psychiatric: A+Ox3, euthymic affect Speech: normal rate/rhythm/volume of speech Lymphatic: no cervical or axillary lymphadenopathy Results & Data Diagnostic Findings 3 views of the left ankle demonstrate complete loss of joint space. Subchondral sclerosis and spurring. Os trigonum present.
--- NOTE | 2019-09-19 13:16 | Communication Note ---
Date of Service: September 19, 2019 Travel assessment/history reviewed - low risk at this time - will be reviewed the morning of surgery. No covid prescreen test done.
--- NOTE | 2019-09-19 14:07 | Anesthesiology Consultation ---
Date of Service September 19, 2019 Assessment & Plan (1) Encounter for pre-operative examination: Chart Review Chart Review: Acceptable Risk for Surgery and Patient NOT seen in Pre Admission Testing Per nursing assessment 09/19/2019 = patient resides in [facility]. No known contact with PUIs or Covid positive people. No current Covid related symptoms or history of Covid testing Seen by PCP 08/17/2019 at telemedicine appointment = changed to famotidine for GERD. Blood pressure at goal. Discussed following up with Ortho regarding his ankle surgery which was postponed due to COVID. Seen by PCP 06/15/2019 = seen for preop for left ankle surgery. "EKG, labs, and chest x-ray reviewed. Patient is cleared to proceed with surgery." History Surgery Operation Date: 09/22/19 07:15 Proposed Procedures p Left Total Ankle Arthroplasty with Possible Arthrex Internal Brace, - Miguel Bhakta DO s Percutaneous Tendon, Resection Ostrigonum, Application of Platelet Rich Plasma - Miguel Bhakta DO Height/Weight Height: 5 ft 8 in Weight: 107.4 kg Allergies Allergy/AdvReac Type Severity Reaction Status Date / Time hydromorphone Allergy Intermediate DELIRIUM Verified 09/14/19 07:57 Medications Home Medications Medication Instructions Recorded Confirmed Last Taken aspirin [Aspirin Low Dose] 81 mg PO QAM 05/25/19 09/19/19 Unknown lovastatin 20 mg PO QAM 05/25/19 09/19/19 Unknown meloxicam 7.5 mg PO QAM 05/25/19 09/19/19 Unknown multivitamin 1 tab PO DAILY 05/25/19 09/19/19 Unknown verapamil 180 mg PO QAM 05/25/19 09/19/19 Unknown famotidine 20 mg PO QAM 09/14/19 09/19/19 Unknown Past Medical History Medical History (Updated 09/19/19 @ 14:15 by Angeles Coelho PA-C) Anemia GERD (gastroesophageal reflux disease) controlled Hearing deficit no hearing aids Hyperlipidemia Hypertension Non-occlusive coronary artery disease 2009 cardiac cath- Non occlusive CAD:LM- clear, LAD-diffuse disease Obesity Osteoarthritis Prostate cancer s/p prostatectomy Sleep apnea CPAP Past Family History Family History Family/Other Family history of diabetes mellitus nephew Brother FHx: prostate cancer Sister FHx: stroke Other No family history of adverse response to anesthesia Past Surgical History Surgical History History of adenoidectomy History of bowel resection s/p rupture History of cardiac cath 2009- no stents History of cataract surgery bilateral History of colonoscopy History of esophagogastroduodenoscopy (EGD) History of left knee replacement History of prostatectomy History of revision of total replacement of right knee joint Right total knee revision: 06/03/17: SAB x 1 + PNB at [facility] History of right knee joint replacement History of tonsillectomy + UPPP Social History Smoking Status: Never smoker Do You Dip or Chew Tobacco: No Hx Alcohol Use: No Hx Substance Use: No substance use type: does not use Testing Laboratory Results Laboratory Tests 09/14/19 09/14/19 09/14/19 13:21 13:21 13:21 WBC 6.31 Hgb 15.4 Hct 44.3 Plt Count 229 PT 10.8 INR 1.0 APTT 28.6 Sodium 142 Potassium 3.9 Chloride 108 H Carbon Dioxide 27 BUN 14 Creatinine 0.91 Glucose 139 H Hemoglobin A1c 09/14/19 13:21 WBC Hgb Hct Plt Count PT INR APTT Sodium Potassium Chloride Carbon Dioxide BUN Creatinine Glucose Hemoglobin A1c 5.6 UA 09/14/19= Negative Electrocardiogram Date: 05/30/19 SB at 58bpm. Leftward axis. Chest X-Ray Date: 05/30/19 Findings: + NAD Prominence and tortuosity of the thoracic aorta unchanged since prior exam. Echocardiogram Date: 05/11/17 LV Function: normal RWMA: + none Other Findings: + LVH (Borderline/concentric) EF 67%. Grade I DD. Mild AR/MR/TR. No aortic stenosis. LA moderately enlarged. Stress Test Date: 02/21/13 Type: nuclear (Lexiscan) Stress EKG with no evidence of ischemia. Stress echo negative for inducible ischemia. Grade 1 diastolic dysfunction. Mild MR, TR, AR. 79% MPHR. 8.0 METS. LVEF greater than 70%.
[~2019-09-22 11:08] MED LIST changes: -ACET-1256 PO; -ASPI81TA28 PO; -ATROPINE SULFATE 0.1 MG/ML 5ML SYR IV PRN; -AXID PO; -BUPIVACAINE 0.25% 30 ML VIAL ONE; -BUPIVACAINE 0.5 % 5 MG/1 ML PF 10ML VIAL ONE; -CEFAZOLIN 2000MG IV PUSH 15 ML IV SCH; -CLBPO15 TOP; -DEXAMETHASONE 4 MG TAB PO SCH; -EpHEDrine SULFATE INJ 50 MG/ML AMP IV PRN; -FENTANYL CITRATE INJ 50 MCG/1 ML 2 ML VIAL IV PRN; -LACTATED RINGER'S 1000ML 1,000 ML IV SCH; -LACTATED RINGER'S 1000ML 500 ML IV SCH; -LACTATED RINGER'S 1000ML IV SCH; -LOVA20TA4 PO; +LR 15ML/HR IV SCH; -METOCLOPRAMIDE HCL 10 MG TAB PO SCH; +METOCLOPRAMIDE HCL 10 MG TABLET PO SCH; -ONDANSETRON INJ 2 MG/ML 2 ML VIAL IV PRN; +ROPIVACAINE 0.5% 5 MG/ML 30 ML VIAL ONE; -ROPIVACAINE 5MG/ML 30 ML 150 MG, BUPIVACAINE 0.5% MPF INJ 30 ML, EpINEphrine HCL INJ 0.... INFIL SCH; -VERAPAMIL PO; +dexAMETHasone 4 MG TAB PO SCH
[2019-09-22] MEDS ORDERED: fentaNYL citrate 100 MCG/2 ML VIAL ONE (11:33)
[2019-09-22] MEDS ORDERED: MIDAZOLAM HCL 1 MG/ML 2ML VIAL ONE ×2 (11:33)
[2019-09-22] MEDS ORDERED: PROPOFOL IV EMULSION 10 MG/ML 20 ML VIAL IV ONE ×3 (11:36→14:05)
[2019-09-22] MEDS ORDERED: ePHEDrine sulfate 50 MG/ML SYR ONE (11:36)
[2019-09-22] MEDS ORDERED: LIDOCAINE HCL 2% 2 ML VIAL/AMP(20MG/ML) INFIL ONE (11:36)
--- NOTE | 2019-09-22 11:45 | History & Physical Bridge Note ---
Date of Service September 22, 2019 History & Physical Bridge Note I have examined the patient, reviewed the History & Physical and in the interval since the performance of the History & Physical I have noted the following changes of clinical significance: no changes noted
[2019-09-22] MEDS ORDERED: CEFAZOLIN 3000MG 72.5 ML IV ONE (12:08)
[2019-09-22] MEDS ORDERED: THROMBIN 5000 UNITS KIT ONE (12:14)
[2019-09-22] MEDS ORDERED: BACITRACIN INJ 50,000 UNIT VIAL ONE (12:14)
[2019-09-22] MEDS ORDERED: CALCIUM CHLORIDE 10% 10 ML SYR IV ONE (12:15)
[2019-09-22] MEDS ORDERED: BUPIVACAINE 0.5 % 5 MG/1 ML PF 10ML VIAL ONE (12:17)
[2019-09-22] MEDS ORDERED: fentaNYL citrate 100 MCG/2 ML VIAL IV PRN (14:18)
[2019-09-22] MEDS ORDERED: ePHEDrine sulfate 50 MG/ML AMP IV PRN (14:18)
[2019-09-22] MEDS ORDERED: ATROPINE SULFATE 0.1 MG/ML 10ML SYR IV PRN (14:18)
[2019-09-22] MEDS ORDERED: ONDANSETRON INJ 2 MG/ML 2 ML VIAL IV PRN ×2 (14:18→16:43)
[2019-09-22] MEDS ORDERED: HydrALAZINE HCL 20 MG/ML VIAL ONE (14:20)
[2019-09-22] MEDS ORDERED: ESMOLOL HCL INJ 10 MG/ML 10ML VIAL IV ONE (14:20)
[2019-09-22] MEDS ORDERED: ONDANSETRON INJ 2 MG/ML 2 ML VIAL ONE (14:22)
--- NOTE | 2019-09-22 15:35 | Fluoroscopy Report ---
FL ankle LT 2V CLINICAL HISTORY: LT TOTAL ANKLE COMPARISON STUDY: None. FLUOROSCOPY TIME: 1 minute and 8 seconds. FINDINGS: 2 fluoroscopic spot images of the left ankle demonstrate a total left ankle arthroplasty. T he hardware appears intact. No fracture or dislocation. Skin ramin are in place. IMPRESSION: Status post left total ankle arthroplasty. No evidence for hardware complication. ACT 112: Negative or not required by law. Electronically signed by: Luke Anderson M.D. 09/22/2019 3:34 PM
--- NOTE | 2019-09-22 15:55 | Post Operative Brief Note ---
Immediate Post Op Note v1 Date of Surgery September 22, 2019 Pre & Post Diagnosis Operation Date: 09/22/19 12:40 Pre-Op Diagnosis: Left Ankle: Osteoarthritis, degenerative joint disease left ankle, Achilles Tendon Contracture, Os Trigonum Syndrome Post-Op Diagnosis: Left Ankle: Osteoarthritis, degenerative joint disease left ankle, Achilles Tendon Contracture, Os Trigonum Syndrome I identified the patient and participated in the time-out.: Yes Procedure Operation Date: 09/22/19 12:40 Actual Procedures p Left Ankle:STAR Total Ankle Arthroplasty, Percutaneous Achilles Tendon Lengthening, Resection Os Trigonum, Application of platelet rich plasma concentrate (Left) - Miguel Bhakta DO Surgeon Miguel Bhakta DO Electricity Trader Larry Woods PA-C Estimated Blood Loss 10 Findings Consistent with Post-Op Diagnosis Specimens Bone and tissue left ankle Drains Hemovac Drain Anesthesia Type Spinal MAC Complications none Disposition Accompanied Patient To Recovery: No Disposition: Recovery Room
--- NOTE | 2019-09-22 16:28 | Anesthesiology Progress Note ---
Date of Service September 22, 2019 Anesthesia Post Procedure Vital Signs Vital Signs: Temp Pulse Pulse Resp BP Pulse Ox 09/22/19 16:22 36.9 C 78 16 135/86 94 09/22/19 16:10 78 16 139/83 95 09/22/19 16:04 37.2 C 76 138/83 96 09/22/19 11:38 37.2 C 63 18 150/87 H 95 Transfer of Care Handoff Completed per policy Notes Mental Status: alert / awake / arousable and participated in evaluation Nausea / Vomiting: adequately controlled Pain: adequately controlled Airway Patency, RR, SpO2: stable & adequate BP & HR: stable & adequate Hydration State: stable & adequate Neuraxial Anesthesia: was administered and sensory block is resolving Anesthetic Complications: no major complications apparent and Pt Satisfied with anesthetic care
[2019-09-22] MEDS ORDERED: bisacodyL 10 MG SUPP PR PRN (16:43)
[2019-09-22] MEDS ORDERED: METOCLOPRAMIDE HCL INJ 5 MG/ML 2 ML VIAL IV PRN (16:43)
[2019-09-22] MEDS ORDERED: MoRPHine SULFATE 2 MG/ML CARP IV PRN (16:43)
[2019-09-22] MEDS ORDERED: TAMSULOSIN HCL 0.4 MG CAP PO PRN (16:43)
[2019-09-22] MEDS ORDERED: NALOXONE HCL 0.4 MG/1 ML VIAL/CARP IV PRN (16:43)
[2019-09-22] MEDS ORDERED: MAGNESIUM HYDROXIDE SUSP 30 ML UDC PO PRN (16:43)
[2019-09-22] MEDS: SODIUM CHLORIDE 0.9% 1000ML 1,000 ML IV SCH (17:10)
[2019-09-22] MEDS: KETOROLAC TROMETHAMINE 15 MG/ML VIAL IV SCH (17:11)
--- NOTE | 2019-09-22 18:17 | Hospitalist Consultation ---
Date of Consultation September 22, 2019 Assessment & Plan (1) Post-operative state: s/p total ankle arthroplasty 09/21 Pain control, dvt proph per primary Monitor for acute blood loss (2) GERD (gastroesophageal reflux disease): Continue famotidine (3) HTN (hypertension): Continue verapamil (4) Dyslipidemia: Continue lovastatin History of Present Illness Attending Physician: Miguel Bhakta, DO History of Present Illness Mr. Francois is feeling well post op, up and eating dinner. 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 Family: heart disease, COPD Allergies Allergy/AdvReac Type Severity Reaction Status Date / Time hydromorphone Allergy Intermediate DELIRIUM Verified 09/22/19 11:32 Home Medications Home Medications Medication Instructions Recorded Confirmed Type aspirin [Aspirin Low Dose] 81 mg PO QAM 05/25/19 09/22/19 History lovastatin 20 mg PO QAM 05/25/19 09/22/19 History meloxicam 7.5 mg PO QAM 05/25/19 09/22/19 History multivitamin 1 tab PO DAILY 05/25/19 09/22/19 History verapamil 180 mg PO QAM 05/25/19 09/22/19 History famotidine 20 mg PO QAM 09/14/19 09/22/19 History Patient History Medical History (Updated 09/19/19 @ 14:15 by Angeles Coelho PA-C) Anemia GERD (gastroesophageal reflux disease) controlled Hearing deficit no hearing aids Hyperlipidemia Hypertension Non-occlusive coronary artery disease 2009 cardiac cath- Non occlusive CAD:LM- clear, LAD-diffuse disease Obesity Osteoarthritis Prostate cancer s/p prostatectomy Sleep apnea CPAP Surgical History (Updated 09/22/19 @ 18:16 by PAYAL Corona) History of adenoidectomy History of bowel resection s/p rupture History of cardiac cath 2009- no stents History of cataract surgery bilateral History of colonoscopy History of esophagogastroduodenoscopy (EGD) History of left knee replacement History of prostatectomy History of revision of total replacement of right knee joint Right total knee revision: 06/03/17: SAB x 1 + PNB at [facility] History of right knee joint replacement History of tonsillectomy + UPPP Family History Family/Other Family history of diabetes mellitus nephew Brother FHx: prostate cancer Sister FHx: stroke Other No family history of adverse response to anesthesia Social History Preferred Language: Tongan Communication Ability: Effective Pot Annealer Required: No Beliefs That Will Affect Care: None Current Living Situation: Spouse Other Information That Helps Us Care for You: No Feels Safe at Home: Yes Safety Concerns: Feels Safe At This Time Smoking Status: Never smoker Do You Dip or Chew Tobacco: No ; Second Hand Exposure: Yes (hx as a child) ; Tobacco Cessation Education Requested by Patient: No Hx Alcohol Use: No Hx Substance Use: No Review of Systems Constitutional: no fever and no chills Respiratory: no cough and no dyspnea Cardiovascular: no chest pain, no palpitations and no lightheadedness Gastrointestinal: no abdominal pain, no nausea and no vomiting Genitourinary: no dysuria and no urinary hesitancy Musculoskeletal: no joint pain and no muscle weakness Integumentary: no rash Physical Exam Physical Exam: General: no distress Eyes: normal inspection, PERLL Respiratory: chest non tender, clear to auscultation, normal breath sounds, no respiratory distress, no accessory muscle use Cardiac: regular rate and rhythm, no rub or gallop, systolic 3/6 murmur LLSB, no edema, no jvd GI/: active bowel sounds, no abd pain or tenderness, soft, non distended Extremities: normal range of motion, normal strength, non tender Neuro/Psych: alert and oriented x 3, normal mood and affect Skin: normal color, dry Results & Data Results & Data ([facility]) Vital Signs (Past 12 Hours) Vital Signs Temp Pulse Pulse Resp BP Pulse Ox 09/22/19 17:45 36.7 C 66 16 153/83 H 96 09/22/19 17:14 36.6 C 69 14 162/79 H 96 09/22/19 16:45 36.6 C 77 14 159/82 H 95 09/22/19 16:34 36.9 C 74 14 147/77 H 94 09/22/19 16:22 36.9 C 78 16 135/86 94 09/22/19 16:10 78 16 139/83 95 09/22/19 16:04 37.2 C 76 138/83 96 09/22/19 11:38 37.2 C 63 18 150/87 H 95 PG Care Time/CCT Total # of Minutes Spent Total Time Spent with Patient: Total time spent is greater than 50% in coordination of care (as documented) at patient's floor/unit and/or counseling patient: Coding Level of Care Code 42353 Inpt Consult Level 4 Diagnoses Post-operative state Z98.890 GERD (gastroesophageal reflux disease) K21.9 HTN (hypertension) I10 Dyslipidemia E78.5
[2019-09-22] MEDS: OXYCODONE HCL IR 5 MG TAB (IMMEDIATE RELEASE) PO PRN (18:19)
[2019-09-22] MEDS ORDERED: COUGH DROP (SUGAR FREE) LOZ 24 LOZ/1 BOX BUCCAL PRN (19:53)
[2019-09-22] MEDS ORDERED: COUGH DROP (SUGAR FREE) LOZ 24 LOZ/1 BOX BUCCAL ONE (19:55)
[2019-09-22] MEDS: DOCUSATE SODIUM 100 MG CAP PO SCH (21:16)
[2019-09-22] MEDS: SENNA 8.6 MG TAB PO SCH (21:16)
[2019-09-22] MEDS: ACETAMINOPHEN 500 MG TAB PO SCH (21:16)
[2019-09-22] MEDS: ASPIRIN 81 MG ECTAB PO SCH (21:17)
[2019-09-22] MEDS: CEFAZOLIN 2000MG 2,000 MG/15 ML SYR IV SCH (21:52)
[2019-09-23] MEDS: KETOROLAC TROMETHAMINE 15 MG/ML VIAL IV SCH ×3 (00:06→11:41)
--- NOTE | 2019-09-23 00:39 | Operative Report (OR) ---
DATE OF OPERATION: 09/22/2019 PREOPERATIVE DIAGNOSES: 1. Left ankle degenerative joint disease. 2. Left ankle osteoarthritis. 3. Achilles tendon contracture. 4. Painful os trigonum syndrome. POSTOPERATIVE DIAGNOSES: 1. Left ankle degenerative joint disease. 2. Left ankle osteoarthritis. 3. Achilles tendon contracture. 4. Painful os trigonum syndrome. PROCEDURES: 1. Left STAR total ankle replacement using a 10 mm contoured polyethylene with a size large tibial component and a size medium talar component. 2. Percutaneous tendo-Achilles lengthening. 3. Resection, painful os trigonum. 4. Application of platelet rich plasma concentrate. SURGEON: Miguel Bhakta DO SALT MAKER: Larry Woods PA-C, who was present for patient positioning, sterile prep and drape, management of retractors and instruments. He was present through the critical portions of the case including wound closure, application of sterile dressing and transport of the patient to recovery. ANESTHESIA: Spinal with popliteal and adductor canal blocks, left lower extremity. SPECIMENS: Bone and tissue, left ankle. DRAINS: Hemovac x1. COMPLICATIONS: None. BLOOD LOSS: 10 mL. PERTINENT HISTORY: This is a 74-year-old gentleman with chronic worsening painful left ankle degenerative joint disease. He had severe injury to his left ankle approximately 65 years ago and he suffered with this over the last 40 years essentially with significant worsening over the last 5 years. He self-treated the ankle for many years with bracing and anti-inflammatories. He has had multiple conservative measures including use of a brace, anti-inflammatories both topically and orally. He has had steroid injections over the years, ice, elevation, rest, observation, modification of activities, and modification of footwear. Radiographs and CT scan demonstrate severe degenerative arthritis with loss of articular cartilage with deformity and clinical exam reflecting limited range of motion and Achilles contracture also with active os trigonum syndrome. The patient was scheduled for surgery as indicated. All potential risks, benefits, complications, alternatives, rehab, potential for incomplete relief of symptoms, need for further surgery, DVT, PE, , persistent pain, swelling, scarring, weakness, neurovascular injury, wound complications, hardware failure, nonunion, malunion, and bone fracture were discussed with the patient. The patient decided to proceed with the procedure as indicated. DESCRIPTION OF PROCEDURE: The patient was taken to the operative suite after popliteal block was administered. The patient was placed supine on the operating room table. Tourniquet was applied over the right lower extremity. After the patient was anesthetized, LMA was placed. The left lower extremity was then sterilely prepped and draped in the usual sterile fashion [id number], elevated and exsanguinated with an Esmarch bandage, and tourniquet inflated to 350 mmHg. An 11 blade scalpel was used to perform a percutaneous Achilles tendon lengthening through 3 small incisions in the posterior aspect of the tendon. The incisions were closed with skin ramin. Next, a 15-blade scalpel incision made in the midline of the left ankle taking care to identify the tibialis anterior. The incision was made lateral to the tibialis anterior and centered over the extensor hallucis longus tendon. The incision was deepened through subcutaneous tissue. Meticulous hemostasis was achieved with electrocautery. Full-thickness skin flaps were developed. Superficial peroneal nerve was identified, retracted, and protected. Next, the extensor retinaculum was incised along the skin incision to the lateral aspect of the tibialis anterior. Tibialis anterior was retracted medially. The extensor hallucis longus and the neurovascular bundle beneath were retracted laterally. The small crossing vessels were cauterized. The anterior capsule was then incised in its midline and then elevated medially and laterally with electrocautery. Appropriate soft tissue retractors were placed carefully to maintain essentially zero skin tension on the superficial skin. After the capsule was elevated and retracted medially and laterally to visualize the medial and lateral malleoli clearly, rongeur was used to perform synovectomy and remove any excess debris and loose bodies. Next, the wound was irrigated and suctioned. Good visualization was obtained. At this point the anterior lip of hypertrophic bone was resected from the tibia with an osteotome and mallet followed by resection of a small osteophyte medially at the medial malleolus. Next, the tibial plafond could be clearly visualized. The neck of the talus was then rongeured down to the true neck of the talus after all hypertrophic osteophytes were excised. Next, attention was directed toward the proximal tibia at which point a 15-blade scalpel incision was made anterior of the tibial tubercle the inferior aspect using the external alignment guide as a guide for pin placement which was essentially in the midline of the tibia with a slight degree of plantar flexion. Guide was placed anteriorly using a small osteotome in the medial gutter of the ankle joint to warp knitter helper in alignment. Next, the small 2.4 mm pin was placed adjacent to the tibial tubercle and the alignment guide was placed approximately one fingerbreadth above the soft tissue and fastened there at approximately two notches medialized proximally. Next, the T-handle guide was placed anteriorly and then this was aligned with the small osteotome and placed in the medial gutter of the ankle joint to make this parallel and then also the orientation of the second ray of the foot was used to guide as well. Next, the more proximal alignment block was pinned unicortically followed by placement of the lateral alignment guide on the tibial alignment jig and the T-handle was removed. Distal cutting block was then fastened to the distal aspect of the tibial alignment guide and then x-rays obtained in AP and lateral projections of the ankle and tibia assuring appropriate alignment of the tibial alignment guide and the tibial cutting block. After appropriate alignment was established, the distal cutting block was then pinned in place with two 2.4 mm pins, one in the proximal and then secondarily in the distal aspect of the tibial cutting guide and the tibial cutting guide was aligned at the inferior aspect at the level of the tibial plafond. Next, after the tibial cutting blocks were aligned and confirmed, the medial and lateral saw capture pins were placed followed by resection of the distal tibia with a sagittal saw. The pins were removed and the distal cutting guide was then removed followed by removal of the distal tibial cut fragment after it was morselized with a small osteotome and resected with a rongeur. A cervical lamina tinner automatic was placed in the ankle joint to open the ankle joint followed by resection of the posterior fragments from the distal tibia cut. Next, the talar cutting guide paddle was placed at the distal tibial cutting guide and fastened in place. The ankle was held in neutral dorsiflexion. Four pins were placed in the talar cutting block fixing the talus in appropriate alignment. Next, after the saw capture pins were placed, the sagittal saw was used to resect the superior aspect of the talus. The talar cutting block guide was then removed as well as the pins and talus. Next the large Os trigonum was identified at the posterior ankle and resected with a pituitary Ronviji. This was then followed by placement of datum guide which was initially placed as an extra small position with regard to position on the talus as well as orientation along the second ray. Central pin was placed and then the posterior capture cutting guide was attached and the anterior milling guide was also fastened with two football screws. Next, the anterior mill was used to resect the anterior aspect of the talar dome. Posterior cut was made. This jig was then removed followed by placement of the shoulder cutting guide and the reciprocating saw was just resect the shoulder portions of the talus using the laser cut line. This guide was then removed leaving the central pin followed by resection of the fragments using a small osteotome and mallet. This was then elevated and resected. Next, the window trial was firmly affixed to the superior aspect of the talus using fluoroscopic confirmation of alignment and position. Next, the central keel was drilled. The window trial was then removed following use of the central keel punch. This was also confirmed using fluoroscopic appeals assistant. The wound was copiously irrigated with pulsatile lavage with Bacitracin additive followed by suctioning of the talar component. Platelet-rich plasma was injected at this time at the undersurface of the implant as well as in the talar dome. The final talar component was impacted in place with fluoroscopic assistance. Next, a trial polyethylene 6 mm was placed in the joint and the posterior aspect of the tibia was measured both medially and laterally. Appropriate size tibial drill guide was then placed and fastened with two pins. This was confirmed with x-ray and then the barrel drills x 2 were performed making certain to aim proximally. Next, the barrel cutting jig was then used to perform the final punch medially and laterally. The trial plate was then removed after appropriate sized polyethylene was sized. Next, the joint was copiously irrigated with pulsatile lavage followed by suctioning of all surfaces. The tibia was then injected with platelet-rich plasma as well as the superior aspect of the tibial final plate implant. This was then impacted in place with the trial polyethylene liner in place to ensure adequate positioning. Next, the final impactor was used to seat the tibial base tray flush with the anterior aspect of the tibia followed by bone grafting of the anterior barrel holes with local bone graft. This was impacted in place with a mallet and bone tamp. This then followed by confirmation with C-arm and then final polyethylene was inserted without difficulty. Excellent range of motion and stability was obtained. No liftoff was noted. The platelet-rich plasma was then sprayed within the joint and all surfaces and also into the subcutaneous tissue and deep soft tissue. A 10-Belgian single-lumen Hemovac drain was placed anterolaterally followed by closure of the ankle joint capsule with #1 Vicryl. The extensor retinaculum was closed using interrupted 2-0 Vicryl, the dermis closed buried 3-0 Vicryl, and skin was closed using 4-0 nylon. A sterile compressive bulky Jeet Cabrera plaster splint was applied overwrapped with an Raoul wrap. Tourniquet was released. The patient was awakened and taken to recovery in stable condition. I attest to the content of the Intraoperative Record and any orders documented therein. Any exceptions are noted below. PARVEEND
[2019-09-23] MEDS: SODIUM CHLORIDE 0.9% 1000ML 1,000 ML IV SCH (02:31)
[2019-09-23] MEDS: ACETAMINOPHEN 500 MG TAB PO SCH ×3 (05:14→20:52)
[2019-09-23] MEDS: CEFAZOLIN 2000MG 2,000 MG/15 ML SYR IV SCH (05:14)
[2019-09-23 05:55] LABS: Hematocrit (blood only) 38.5 % (42-52); Hemoglobin 13.4 g/dL (14.0-18.0); Mean Corpuscular Hemoglobin 30.7 pg (25-34); Mean Corpuscular Hgb Conc 34.8 g/dL (32-36); Mean Corpuscular Volume 88.3 fL (80-100); Mean Platelet Volume 10.2 fL (7.4-10.4); Platelet Count 207 K/uL (130-400); RDW Coefficient of Variation 12.1 % (11.5-14.5); RDW Standard Deviation 38.7 fL (36.4-46.3); Red Blood Count 4.36 M/uL (4.7-6.1); White Blood Count 11.02 K/uL (4.8-10.8)
[2019-09-23 06:15] LABS: BUN Creatinine Ratio 17.9 (10-20); Calcium 8.1 mg/dl (8.5-10.1); Creatinine Clr Calc Pharmacy 75.4 ml/min; Est GFR (African American) 85.6; Est GFR (Non-African American) 73.8; Potassium 4.3 mmol/L (3.5-5.1)
--- NOTE | 2019-09-23 07:48 | Orthopedic Progress Note ---
Date of Service September 23, 2019 Assessment & Plan (1) Osteoarthritis of ankle, left: POD# 1 Left Ankle: Total Ankle Arthroplasty, Percutaneous Achilles Tendon Lengthening, Resectoin Ostrigonum, Application of Plasma Rich Protein -Pain management -DVT prophylaxis-ASA 81mg BID x 4 weeks, SCDs -NWB Left LE -AM labs-hemoglobin 13.4 down from 15.4 preop -D/C planning-home with home health services possibly today if home health services can be set up. Admission and Anticipated Discharge Date Admission Date: September 22, 2019 Subjective Patient is resting in bed comfortably, pain well controlled. Block still in effect. Denies chest pain, sob, dizziness, n/v/d. Review of Systems Review of Systems: All systems reviewed & are unremarkable except as noted in HPI & below Physical Exam Physical Exam: Dressing to left lower leg c/d/i, hemovac in place. Toes are mobile. Sensation to toes intact, cap refill <3s. No calf tenderness. Distally n/v status intact. Constitutional: well developed and well nourished; no acute distress Results & Data ([facility]) Vital Signs (Past 12 Hours) Vital Signs Temp Pulse Pulse Resp BP Pulse Ox 09/23/19 07:12 36.6 C 59 L 16 124/78 95 09/23/19 03:19 36.6 C 57 L 14 154/87 H 94 09/22/19 23:27 36.8 C 68 14 113/70 92 09/22/19 22:18 92 Laboratory Results H & H 09/23/19 Range/Units 04:52 Hgb 13.4 L (14.0-18.0) g/dL Hct 38.5 L (42-52) % (1) Osteoarthritis of ankle, left Osteoarthritis type: primary Qualified Code(s): M19.072 - Primary osteoarthritis, left ankle and foot
[2019-09-23] MEDS: VERAPAMIL HCL 180 MG TABCR PO SCH (08:35)
[2019-09-23] MEDS: LOVASTATIN 20 MG TAB PO SCH (08:36)
[2019-09-23] MEDS: DOCUSATE SODIUM 100 MG CAP PO SCH ×2 (08:36→20:52)
[2019-09-23] MEDS: ASPIRIN 81 MG ECTAB PO SCH ×2 (08:36→20:51)
[2019-09-23] MEDS: MELOXICAM 7.5 MG TAB PO SCH (08:36)
[2019-09-23] MEDS: FAMOTIDINE 20 MG TAB PO SCH (08:37)
[2019-09-23] MEDS: MULTIVITAMIN TAB PO SCH (08:37)
[2019-09-23] MEDS ORDERED: MULTIVITAMIN TAB PO SCH (09:00)
--- NOTE | 2019-09-23 11:27 | Hospitalist Progress Note ---
Date of Service September 23, 2019 Assessment & Plan (1) Post-operative state: S/p total ankle arthroplasty on 09/[address] Bhakta. - Pain control, dvt proph per primary - Mild acute blood loss anemia with drop to 13.4 after surgery. Discharge on ASA 81mg PO BID per primary team for DVT prophylaxis. (2) GERD (gastroesophageal reflux disease): No reports of GERD today. - Continue famotidine (3) HTN (hypertension): BP is 145/70. High was 160/80 which is ok for the hospital and being post- op. - Continue verapamil - Follow up with PCP. (4) Dyslipidemia: - Continue lovastatin Given medical stability, Hospital Medicine team will sign off. Please re-consult with any questions or concerns. Thank you for letting us assist in the care of this patient! Admission and Anticipated Discharge Date Admission Date: September 22, 2019 Subjective Doing well today. No major pain in the left ankle. Reports no fevers/chills, chest pain, shortness of breath, abdominal pain, nausea, or vomiting. Physical Exam Constitutional: WD/WN, vitals as above Eyes: EOM intact bilaterally; no conjunctival abnormality ENMT: external ear and nose normal, oropharynx normal Neck: trachea midline, no thyromegaly normal visual inspection Respiratory: normal respiratory effort, lungs clear to auscultation no respiratory distress Cardiovascular: RRR, no murmur, no edema Gastrointestinal (Abdomen): Inspection/Auscultation: abdomen normal to inspection; abdomen not distended Musculoskeletal: no cyanosis or clubbing, extremities motor strength 5/5 Extremities: + lower leg abnormality (Left ankle/lower leg in bandage with drain. Serosanguinous.) Skin: no rashes, warm and dry Neurologic: moves all extremities and awake Psychiatric: Orientation: alert, oriented to person and cooperative Results & Data Results & Data ([facility]) Vital Signs (Past 12 Hours) Vital Signs Temp Pulse Resp BP Pulse Ox 09/23/19 08:33 65 133/78 09/23/19 07:12 36.6 C 59 L 16 124/78 95 09/23/19 03:19 36.6 C 57 L 14 154/87 H 94 PG Care Time/CCT Total # of Minutes Spent Total Time Spent with Patient: Total time spent is greater than 50% in coordination of care (as documented) at patient's floor/unit and/or counseling patient: Coding Level of Care Code 78733 Subseq Hosp Care Lvl 2 Diagnoses Post-operative state Z98.890 GERD (gastroesophageal reflux disease) K21.9 HTN (hypertension) I10 Dyslipidemia E78.5
[2019-09-23] MEDS: OXYCODONE HCL IR 5 MG TAB (IMMEDIATE RELEASE) PO PRN ×2 (18:29→23:42)
[2019-09-23] MEDS: SENNA 8.6 MG TAB PO SCH (20:51)
[2019-09-24] MEDS: ACETAMINOPHEN 500 MG TAB PO SCH (05:59)
--- NOTE | 2019-09-24 07:36 | Orthopedic Progress Note ---
Date of Service September 24, 2019 Assessment & Plan (1) Osteoarthritis of ankle, left: POD# 2 Left Ankle: Total Ankle Arthroplasty, Percutaneous Achilles Tendon Lengthening, Resectoin Ostrigonum, Application of Plasma Rich Protein -Pain management -DVT prophylaxis-ASA 81mg BID x 4 weeks, SCDs -NWB Left LE -AM labs yesterday-hemoglobin 13.4 down from 15.4 preop -D/C planning-home with home health services today. Admission and Anticipated Discharge Date Admission Date: September 22, 2019 Subjective Patient is resting in bed comfortably, pain well controlled. Having increased pain since block has worn off but tolerable. Denies chest pain, sob, dizziness, n/v/d. Review of Systems Review of Systems: All systems reviewed & are unremarkable except as noted in HPI & below Physical Exam Physical Exam: Dressing to left lower leg c/d/i, hemovac in place. Toes are mobile. Sensation to toes intact, cap refill <3s. No calf tenderness. Distally n/v status intact. Constitutional: well developed and well nourished; no acute distress Results & Data ([facility]) Vital Signs (Past 12 Hours) Vital Signs Temp Pulse Resp BP Pulse Ox 09/24/19 07:16 36.7 C 62 18 155/90 H 95 09/23/19 23:25 36.9 C 60 14 148/76 H 94 (1) Osteoarthritis of ankle, left Osteoarthritis type: primary Qualified Code(s): M19.072 - Primary osteoarthritis, left ankle and foot
[2019-09-24] MEDS: OXYCODONE HCL IR 5 MG TAB (IMMEDIATE RELEASE) PO PRN ×2 (07:42→12:44)
[2019-09-24] MEDS: LOVASTATIN 20 MG TAB PO SCH (08:11)
[2019-09-24] MEDS: ASPIRIN 81 MG ECTAB PO SCH (08:11)
[2019-09-24] MEDS: MELOXICAM 7.5 MG TAB PO SCH (08:11)
[2019-09-24] MEDS: DOCUSATE SODIUM 100 MG CAP PO SCH (08:11)
[2019-09-24] MEDS: MULTIVITAMIN TAB PO SCH (08:11)
[2019-09-24] MEDS: FAMOTIDINE 20 MG TAB PO SCH (08:11)
[2019-09-24] MEDS: VERAPAMIL HCL 180 MG TABCR PO SCH (08:11)
--- NOTE | 2019-09-27 08:54 | Discharge Summary ---
Date of Service September 27, 2019 Admission HPI Per Admitting Provider This is a patient with a long hx of ankle pain after an injury over 65 years ago. He self treated the ankle pain for many years using bracing and anti- inflammatories. He's had other conservative treatments done more recently, but he has failed all treatments. He is now being set up for a total ankle arthroplasty. Principal Diagnosis left ankle osteoarthritis Discharge Exam Constitutional well developed and well nourished; no acute distress ENMT external ear and nose normal, oropharynx normal Neck trachea midline, no thyromegaly Respiratory normal respiratory effort, lungs clear to auscultation Cardiovascular Rate/Rhythm: regular rate and regular rhythm Gastrointestinal (Abdomen) normal bowel sounds, soft, nontender, no hepatosplenomegaly Musculoskeletal Ankle: + surgical incision (left ankle in SLC splint.); no skin erythema, no ecchymosis and no surgical drain present Skin no rashes, warm and dry Neurologic normal touch/pain/proprioception Psychiatric A+Ox3, euthymic affect Speech: normal rate/rhythm/volume of speech Lymphatic no cervical or axillary lymphadenopathy Discharge Data Allergies Allergy/AdvReac Type Severity Reaction Status Date / Time hydromorphone Allergy Intermediate DELIRIUM Verified 09/22/19 11:32 Consultations 09/22/19 16:43 Consult Case Management - Discharge Planning Routine Consult Hospitalist Routine Procedures Performed Operation Date: 09/22/19 12:40 Actual Procedures p Left Ankle: Total Ankle Arthroplasty, Resectoin Ostrigonum, Application of Plasma Rich Protein(Left) - Miguel Marie DO s Percutaneous Achilles Tendon Lengthening(Left) - Miguel Marie DO Ordered Studies 09/22/19 05:00 US - OR guided needle placemen Routine 09/22/19 12:40 FL ankle LT 2V Routine FL fluoroscopy <1hr Routine Hospital Course (1) Osteoarthritis of ankle, left: The patient was admitted on 09.22.2019 and underwent a left total ankle arthroplasty. He was kept NWB. Pain control was a main goal throughout the admission. On POD #2, he was doing well with pain control and maintaining his NWB status. He was discharged home with home health on POD #2. POD# 2 Left Ankle: Total Ankle Arthroplasty, Percutaneous Achilles Tendon Lengthening, Resectoin Ostrigonum, Application of Plasma Rich Protein -Pain management -DVT prophylaxis-ASA 81mg BID x 4 weeks, SCDs -NWB Left LE -AM labs yesterday-hemoglobin 13.4 down from 15.4 preop -D/C planning-home with home health services today. Total Time Total Time Spent Total Time Spent (In Minutes): 45 Total Time Includes: Examination of the Patient, Discharge Planning and Medi cation Reconciliation Discharge Plan Discharge Items Patient Disposition: Home - Home Health Services Reason For Visit: Left Ankle Ostrigonium, Achilles Tendon Contractur Discharge Diagnosis: Left ankle osteoarthritis, ostrigonium, Achilles tendon contracture Activity: Per Instructions section Non-emergency contact: Surgeon Call non-emergency contact if: you have any medication questions, your pain is not controlled, your pain is worsening, your pain is concerning for you, you have a fever, your temperature is above 101, your wound has increased redness and your wound pain has increased Follow-up/Referrals: Jaime Stevens MD [Primary Care Provider] - Diet: Regular Addtl Attending Provider Instructions: ACTIVITY RECOMMENDATIONS: Limitations: No weight bearing to affected limb at all times. SPECIAL CARE INSTRUCTIONS: * Some drainage onto the dressing is normal and is no cause for alarm. * Some swelling is natural especially after walking. * When resting, keep your foot elevated above the level of your heart. * Call [facility] if you notice: -Increased drainage -Fever over 101 degrees F -Severe constant pain BANDAGE: * Leave bandage/cast in place unless otherwise directed. * Keep bandage/cast dry at all times. FOLLOW UP VISIT WITH DR. MARIE If appointment is not already scheduled: Please call [facility] after you get home today to schedule a follow-up appointment for [address] Marie at . Pending Studies at Discharge: No Stand-Alone Forms: My [employer], Opioid Pain Management, Smoking Cessation Medications and DC Order Prescriptions: New aspirin 81 mg Tablet,Delayed Release (Dr/Ec) 81 mg PO BID Qty: 60 RF: 0 oxycodone-acetaminophen [Percocet] 5-325 mg tablet 1 - 2 tab PO .Q4H-6H MDD 6 PRN (Reason: pain) Qty: 30 RF: 0 Continued verapamil 180 mg Tablet Extended Release 180 mg PO QAM RF: 0 meloxicam 7.5 mg Tablet 7.5 mg PO QAM RF: 0 lovastatin 20 mg Tablet 20 mg PO QAM RF: 0 multivitamin Tablet,Chewable 1 tab PO DAILY RF: 0 famotidine 20 mg Tablet 20 mg PO QAM RF: 0 Discontinued aspirin [Aspirin Low Dose] 81 mg Tablet,Delayed Release (Dr/Ec) 81 mg PO QAM RF: 0 Discharge Orders: Discharge Order (Routine); Ordered 09/24/19 Ordered By: Vargas Bui/Other Patient Handouts: DVT Post Op Prevention Admission Data Admit Date/Time: 09/22/19 16:10 Attending Provider: Miguel Marie Admit Provider: Miguel Marie Primary Care Provider: Jaime Stevens I. Other Providers: Bryce Mtz ; Nick Hargrove ; Sarah Gillespie ; Deb Rushing ; Ajay Mock ; Jeet Schaeffer ; Lizzy Borjas ; Aleks Joshua ; Baldomero Tracey ; David Fink ; Indiana Fitzgerald ; Yeny Ragsdale ; Mela Thomas ; Sarah Luis ; Maxi Andre ; Michelle Balbuena ; Effie Santo ; Sarwat Alvarez ; Anand Tolentino ; David Nicholson ; Randa Vanegas ; Beth Gerard ; Ciro Butts ; Ajay Plaza ; Georgia Belle ; Lisandro Manley ; Cristela Walker ; Chepe Walker ; [employer] ; James Aldrich ; Tim Ramirez ; Rubio Potter ; Chucky Sanchez ; Carolin Vazquez ; Pedro Luis Mayen ; Alejandro Arenas Other Interventions: Discharge Summary Assessment (RN) Last Done: 09/24/19 07:54 DC Date/Time DO NOT enter until pt leaves facility: 09/24/19 13:35
== END 2019-09-24 13:35 | disposition home health service (06) | DRG 469 ==
LOC: ASU 11:08 → 3E 16:10